=== PATIENT | male | born 1995 | race Two or more races ===

== ENCOUNTER 2023-08-17 11:37 | Emergency (ER) | payer MEDICAID, OTHER ==
[~2023-08-17] VITALS: Ht 170.2 cm; Wt 117.8 kg
[2023-08-17] MEDS ORDERED: CEPH500T PO (14:16)
[2023-08-17] MEDS ORDERED: SILV1CRE82 TOP (14:16)
[2023-08-17] MEDS ORDERED: ACET-6 PO (14:16)
[2023-08-17 14:37] VITALS: BP 134/87; PULSE 87; RESP 17; TEMP 98.1; O2SAT 97
== END 2023-08-17 14:42 | disposition home or self-care (01) ==
LOC: ER 11:37
DX: T22.20XA Burn of second degree of shoulder and upper limb, except wrist and hand, unspecified site, initial encounter (principal); T20.20XA Burn of second degree of head, face, and neck, unspecified site, initial encounter; T31.0 Burns involving less than 10% of body surface; Z79.899 Other long term (current) drug therapy; X12.XXXA Contact with other hot fluids, initial encounter; Y93.I9 Activity, other involving external motion; Y92.89 Other specified places as the place of occurrence of the external cause; Y99.8 Other external cause status